=== PATIENT | male | born 1965 | race African-American/Black ===

== ENCOUNTER 2022-04-03 13:06 | Emergency (ER) | payer OTHER ==
[~2022-04-03] VITALS: Ht 175.3 cm; Wt 75.4 kg
[2022-04-03 17:03] LABS: BASOPHILS % 0.5 % (0.0-2.0); HEMATOCRIT. 39.9 % (42.0-52.0); HEMOGLOBIN. 12.9 g/dL (14.0-18.0); LYMPHOCYTES % 25.1 % (20.0-50.0); MEAN CORPUSCULAR HEMOGLOBIN 23.4 pg (28.0-32.0); MEAN CORPUSCULAR VOLUME 72.6 fL (80.0-94.0); MEAN PLATELET VOLUME 7.1 fl (7.4-10.4); MONOCYTES % 13.9 % (2.0-8.0); NEUTROPHILS % 55.5 % (40.0-76.0); PLATELET 320 x1000/uL (130-400); RED BLOOD CELL COUNT 5.49 mill/uL (4.7-6.1); RED CELL DISTRIBUTION WIDTH 15.1 % (11.6-14.6)
[2022-04-03 17:23] LABS: CHLORIDE 102 mEq/L (98-107)
[2022-04-03 21:49] VITALS: BP 108/65
== END 2022-04-03 21:40 | disposition home or self-care (01) ==
LOC: ER 13:06
DX: K52.9 Noninfective gastroenteritis and colitis, unspecified (principal); K59.00 Constipation, unspecified; K74.60 Unspecified cirrhosis of liver; Z90.49 Acquired absence of other specified parts of digestive tract; Z86.718 Personal history of other venous thrombosis and embolism
CPT/HCPCS: 36415; 74176; 80053; 82962; 85025; 99284

== ENCOUNTER 2022-04-25 07:23 | Emergency (ER) | payer MEDICAID, OTHER ==
[~2022-04-25] VITALS: Ht 175.3 cm; Wt 76.0 kg
[2022-04-25 07:28] VITALS: BP 119/81
[2022-04-25 09:58] LABS: BASOPHILS % 0.6 % (0.0-2.0); EOSINOPHILS % 5.6 % (0.0-5.0); HEMATOCRIT. 36.4 % (42.0-52.0); LYMPHOCYTES % 18.5 % (20.0-50.0); MEAN CORPUSCULAR HEMOGLOBIN 23.9 pg (28.0-32.0); MEAN CORPUSCULAR VOLUME 72.6 fL (80.0-94.0); MEAN PLATELET VOLUME 6.9 fl (7.4-10.4); MONOCYTES % 11.3 % (2.0-8.0); PLATELET 316 x1000/uL (130-400); RED BLOOD CELL COUNT 5.01 mill/uL (4.7-6.1); RED CELL DISTRIBUTION WIDTH 17.3 % (11.6-14.6)
[2022-04-25 10:06] LABS: CHLORIDE 105 mEq/L (98-107)
[2022-04-25 10:10] LABS: D-DIMER 0.46 mg/L FEU (<0.50); PARTIAL THROMBOPLASTIN TIME 28.4 sec (23.4-31.0); PROTHROMBIN TIME 10.7 sec (9.6-11.0)
[2022-04-25] MEDS ORDERED: FAMO40TA70 MT (12:20)
[2022-04-25] MEDS ORDERED: RIVA20TA MT (12:20)
[2022-04-25 12:57] LABS: CLARITY URINE CLEAR (CLEAR); COLOR URINE ORANGE (YELLOW); KETONES URINE 1+ (NEGATIVE); LEUKOCYTE ESTERASE URINE TRACE (NEGATIVE); NITRITE URINE NEGATIVE (NEGATIVE); OCCULT BLOOD URINE NEGATIVE (NEGATIVE); PH URINE 5.5 (4.5-8.0); PROTEIN URINE NEGATIVE (NEGATIVE); SPECIFIC GRAVITY URINE 1.026 (1.005-1.030)
== END 2022-04-25 12:36 | disposition home or self-care (01) ==
LOC: ER 07:23
DX: R07.9 Chest pain, unspecified (principal); K70.30 Alcoholic cirrhosis of liver without ascites; Z90.49 Acquired absence of other specified parts of digestive tract; Z86.718 Personal history of other venous thrombosis and embolism; Z87.891 Personal history of nicotine dependence
CPT/HCPCS: 36415; 71045; 76700; 80053; 81003; 83880; 84484; 85025; 85379; 93005; 99285

== ENCOUNTER 2022-06-23 07:36 | Emergency (ER) | payer SELFPAY ==
[~2022-06-23] VITALS: Ht 175.3 cm; Wt 68.0 kg
[~2022-06-23 07:36] MED LIST: FAMO40TA70 MT; RIVA20TA MT
[2022-06-23 07:39] VITALS: BP 150/87
== END 2022-06-23 13:51 | disposition left against medical advice (07) ==
LOC: ER 07:36
DX: R63.4 Abnormal weight loss (principal); Z53.21 Procedure and treatment not carried out due to patient leaving prior to being seen by health care provider
CPT/HCPCS: 99281